=== PATIENT | male | born 1980 | race Caucasian/White ===

== ENCOUNTER → 2023-12-01 12:16 | Outpatient (REF) | payer OTHER, SELFPAY | LOC: RAD 12:16 | PROVIDERS: ATTENDING PHYSICIAN Family Medicine | DX: M54.6 Pain in thoracic spine (principal) | CPT/HCPCS: 72072 ==

== ENCOUNTER → 2024-11-09 09:47 | Outpatient (REF) | payer OTHER, SELFPAY | LOC: RAD 09:47 | PROVIDERS: ATTENDING PHYSICIAN Family Medicine | DX: D72.829 Elevated white blood cell count, unspecified (principal); M79.89 Other specified soft tissue disorders | CPT/HCPCS: 73630 ==